=== PATIENT | male | born 1990 | race Caucasian/White ===

== ENCOUNTER 2018-12-25 19:32 | Emergency (ER) | payer OTHER, SELFPAY ==
[2018-12-25 19:40] VITALS: BP 155/86; PULSE 89; RESP 18; TEMP 36.9; O2SAT 99
[2018-12-25 21:14] VITALS: BP 154/89; PULSE 67; RESP 22; O2SAT 100
[2018-12-25 22:26] VITALS: BP 153/80; PULSE 89; RESP 16; O2SAT 100
--- NOTE | 2018-12-25 22:44 | ED_ITS ---
HPI - Anxiety General Chief Complaint: Anxiety Stated Complaint: Anxiety Time Seen by Provider: 12/25/18 22:44 Source: patient Mode of arrival: ambulatory Limitations: no limitations History of Present Illness HPI narrative: The patient complains of anxiety. He is concerned about his blood pressure, his blood pressure seems ago points checked. He has panic attacks on occasion. He has no prior history of depression but he feels depressed at times. He has no prior mental health diagnosis. He is on no medications. He has no substance abuse or alcohol abuse history. He had surgery at the age of 18 for testicular torsion. On a regular basis he has tightness bilaterally 3 is a lower abdomen, the tightness seeming come from his scrotum. With this he has no scrotal or penile lesions. He denies dysuria or hematuria. He has no scrotal pain. He has no physical illness. He sees a parachute cushion installer, suggestions thus far have have not helped. Self-harm has crossed his mind, but he clearly states he has no suicidal or homicidal ideation. Related Data Previous Rx's Medication Instructions Recorded lorazepam [Ativan] 1 mg PO Q8H PRN #10 tab 12/25/18 Allergies Allergy/AdvReac Type Severity Reaction Status Date / Time codeine AdvReac Unknown Verified 12/25/18 19:46 Review of Systems Review of Systems ROS Unobtainable: All systems reviewed & are unremarkable except as noted in HPI and below Constitutional Denies chills, Denies fever(s), Denies headache(s), Denies lethargy and Denies weakness Eyes Denies change in vision and Denies irritation ENT Ears, Nose, Mouth, and Throat: Denies dizziness, Denies headache(s), Denies neck pain and Denies sore throat Cardiovascular Denies chest pain, Denies irregular heart rhythm, Denies lightheadedness, Denies palpitations, Denies dyspnea, Reports dyspnea on exertion and Denies orthopnea Respiratory Denies cough, Denies dyspnea, Reports dyspnea on exertion and Denies wheezing Gastrointestinal Gastrointestinal: Denies abdominal pain, Denies diarrhea, Denies nausea and Denies vomiting Genitourinary Comments: Testicular discomfort. Associated lower abdominal discomfort. See HPI. Musculoskeletal Denies back pain and Denies neck pain Integumentary/Breasts Denies pruritus, Denies erythema, Denies rash and Denies wounds Neurologic Denies dizziness, Denies headache(s) and Denies weakness Psychiatric Reports anxiety, Reports panic attacks, Denies hallucinations, Denies homicidal ideation and Denies suicidal ideation Endocrine Denies palpitations Allergic/Immunologic Denies wheezing [facility] Medical History (Updated 12/25/18 @ 23:17 by Samuel Malloy MD) Anxiety (Acute) No significant past surgical history (Acute) Social History (Updated 12/25/18 @ 23:06 by Samuel Malloy MD) Smoking Status: Never smoker substance use type: does not use Social History (Updated 12/25/18 @ 23:06 by Samuel Malloy MD) Smoking Status: Never smoker substance use type: does not use Exam Initial Vital Signs Initial Vital Signs: Vital Signs Temperature 98.4 F 12/25/18 19:40 Pulse Rate 89 12/25/18 19:40 Respiratory Rate 18 12/25/18 19:40 Blood Pressure 155/86 H 12/25/18 19:40 Pulse Oximetry 99 12/25/18 19:40 Const General: cooperative and well developed Nutritional Appearance: well nourished Orientation: alert, awake, oriented x3 and not confused [facility] Head: normocephalic and atraumatic Nose: external nose normal Face and sinus: sinuses nontender, face symmetric and No dry mucous membranes Mouth: moist mucous membranes Teeth and gingiva: dentition normal Throat: tonsils normal and uvula midline Eyes General: appearance normal, both eyes and all related structures Eyelids: eyelids normal Conjunctivae: conjunctivae normal Sclera: sclerae normal Pupils: PERRL EOM: EOM intact bilaterally Neck Neck: No lymphadenopathy and No JVD Chest Chest: normal inspection of the chest Resp Effort & Inspection: normal respiratory effort, able to speak in complete sentences, no respiratory distress and no use of accessory muscles Auscultation: clear to auscultation bilaterally, no rales, no rhonchi and no wheezes Cardio Rate: regular rate Rhythm: regular rhythm Heart Sounds: no click, no gallops, no murmurs and no rubs Pulses: normal peripheral pulses GI Inspection: non-distended Palpation: soft, no hepatosplenomegaly, No guarding, No pulsatile mass and No tender Auscultation: normal bowel sounds Other: Bilateral ?tightness? in the epididymis. No testicular masses. No hernias. Normal penis. Back/Spine/Pelvis Back: normal to inspection and No back tenderness Skin General: no rashes or lesions noted and No jaundice Neuro General: alert, oriented x3, gait normal and no focal motor deficits Speech: speech normal Extrem General: normal to inspection and full ROM Course Course Narrative: The patient referred to Urology regarding the scrotal discomfort. He clearly has anxiety. I am suggesting a MD, hopefully with referral to a counselor. He would likely do well with medication. Vital Signs - 8 hr 12/25/18 19:40 12/25/18 21:14 12/25/18 22:26 Temperature 98.4 F Pulse Rate 89 67 89 Respiratory Rate 18 22 16 Blood Pressure 155/86 H Blood Pressure [Left Arm] 154/89 H 153/80 H Pulse Oximetry 99 100 100 Discharge Plan Departure Patient Disposition: Home Clinical Impression: Acute anxiety, Pain in scrotum Instructions: Anxiety Disorders, DI for Testicular Pain Activity Restrictions/Additional Instructions: Ativan 1 mg every 8 hours as needed for anxiety, minimize the use of this medication. Establish care with a doctor near where you live. Your doctor may want to discuss medications for anxiety. Hopefully you have a doctor that would be for you to counseling. I would recommend follow-up with a urologist. I will give you contact information for a local urologist. Prescriptions: New lorazepam [Ativan] 1 mg tablet 1 mg PO Q8H PRN (Reason: anxiety) Qty: 10 RF: 0 Referrals: Leo Christiansen MD [Physician] -
[2018-12-25] MEDS: LORazepam 0.5 MG TABLET 1 MG PO (23:25)
[2018-12-25 23:30] VITALS: BP 136/77; PULSE 71; RESP 19; O2SAT 100
== END 2018-12-25 23:41 | disposition home or self-care (01) ==
PROVIDERS: Emergency Provider Emergency Medicine
DX: F41.9 Anxiety disorder, unspecified (principal); N50.82 Scrotal pain
CPT/HCPCS: 99283